=== PATIENT | male | born 1960 | race African-American/Black ===

== ENCOUNTER 2018-08-29 11:04 | Observation (INO) ==
[2018-08-29] MEDS ORDERED: Isovue-370 500 ML BOTTLE IVP ONE (11:58)
[2018-08-29] MEDS ORDERED: Furosemide 40 MG/4 ML VIAL IVP ONE (12:14)
--- NOTE | 2018-08-29 12:20 | Emergency Department Note ---
Disposition Clinical Impression: Ascites of liver Disposition: Admitted As Inpatient Condition: Fair Referrals: NONE,PCP [Primary Care Provider] - Forms: ED Satisfaction Letter, Work/School Release Time of Disposition: 14:32 Abdominal Pain HPI - General Chief Complaint: ED Abdominal Pain Stated Complaint: Abdominal Pain and Swelling Time Seen by Provider: 08/29/18 11:52 - History of Present Illness HPI Narrative: Patient is 57-year-old male presents to the emergency room complains of abdominal swelling. The patient apparently was here by week ago, the patient did have ascites, patient was discharged apparently with only Flagyl, he was apparently told to follow up with creative consultant for thrombocytopenia. The patient has not been able to follow up with anybody in the past 1 week. Patient complains of continuing abdominal swelling and pain. He also complains of lower tremor swelling. Patient states that again he has had this one time in the past , was treated with apparent diuretics and got better. Patient does computer some mild shortness of breath, denies any severe cough or congestion. He denies any fevers or chills. He does complain of this abdominal pain being mild in nature. Nothing else makes symptoms better or worse. He has had no or GI complaints otherwise except for the pain and swelling. Patient has been having no vomiting, no nausea. The patient denies any fevers or chills. He denies any rash. Pain Scale: 8 - Related Data Home Medications Medication Instructions Recorded Confirmed No Known Home Drugs 08/29/18 08/29/18 Allergies Allergy/AdvReac Type Severity Reaction Status Date / Time No Known Allergies Allergy Verified 08/17/18 15:18 Review of Systems: As mentioned per history of present illness and as follows. Constitutional: Negative for chills or fever HENT: Negative for sore throat. Eyes: Negative for visual disturbance Respiratory: Positive for shortness of breath. Cardiovascular: Negative for palpitations. Gastrointestinal: Positive for abdominal pain Genitourinary: Negative for dysuria Musculoskeletal: Negative for back pain. Skin: Negative for rash. Neurological: Negative for focal weakness Psychiatric/Behavioral: Negative for depression Abdominal Pain PMH - Past Medical History Medical history: Reports: no medical history Male Surgical History: Reports: no surgical history Psychiatric history: Reports: no psych history - Social History Smoking status: Current every day smoker Alcohol use: Reports: occasionally Drug use: Reports: marijuana Physical Exam PHYSICAL EXAM Constitutional: Well developed, Well nourished, No acute distress, Non-toxic appearance. HENT: Normocephalic, Atraumatic, Bilateral external ears normal, Oropharynx moist, No oral exudates, Nose normal. Neck- Normal range of motion, No tenderness, Supple. Eyes: PERRL, EOMI, Conjunctiva normal,. Cardiovascular: Regular rate and rhythm without clicks, rubs, gallops or murmurs. Respiratory: Normal breath sounds, No respiratory distress, No wheezing, rhonchi, or crackles. GI: Distended, mild tenderness appreciated, positive fluid wave, bowel sounds are appreciated. Musculoskeletal: Good range of motion in all major joints. No tenderness to palpation or major deformities noted. +5/5 strength noted to all extremities. Integument: Warm, Dry, No erythema, No rash. +2 pretibial edema, edema extends up to the thigh region bilaterally. Neurologic: Alert & oriented x 3, Normal sensory function, No focal deficits noted. CN II-XII grossly intact. Course Vital Signs Temperature 98.1 F 08/29/18 11:05 Pulse Rate 113 08/29/18 11:05 Respiratory Rate 18 08/29/18 11:05 Blood Pressure 140/89 08/29/18 11:05 O2 Sat by Pulse Oximetry 95 08/29/18 11:05 Temperature 98.1 F 08/29/18 12:52 Pulse Rate 87 08/29/18 13:09 Respiratory Rate 18 08/29/18 12:52 Blood Pressure 131/89 08/29/18 13:09 O2 Sat by Pulse Oximetry 95 08/29/18 12:52 Oxygen Delivery Oxygen Delivery Room Air Abdominal Pain - MDM Narrative Medical decision making narrative: EKG was obtained that showed sinus rhythm 79 beats a minute, the patient does not have initial upward deflection in V1 or V2, possible anteroseptal infarct noted that appears to be old. Otherwise no other ST elevation or depression. ID and QT intervals appear to be within normal limits. Interpreted by myself. Patient at this time is going to be admitted for new onset cirrhosis. The patient has continued swelling of the abdomen, the patient continues to have thrombus in it. He has well. The patient however does not have significant elevated liver enzymes. The patient is going to be admitted. Patient will also have interventional radiology perform paracentesis for significant ascites. The patient also has significant swelling to the lower extremities. The patient will be admitted, case was discussed in full detail with the hospitalist and the patient will be admitted to the floor in stable condition. Final impression 1. Cirrhosis 2. ascites 3. Anasarca 4. Thrombocytopenia - Lab Data Result diagrams: 08/29/18 11:57 08/29/18 11:57 Lab Results 08/29/18 08/29/18 08/29/18 Range/Units 11:57 11:57 12:10 WBC 7.8 (4.3-11.1) K/mcL RBC 4.67 (4.19-5.50) M/mcL Hgb 12.3 L (12.9-16.9) g/dL Hct 37.5 (37.5-50.1) % MCV 80.3 L (83.0-100.0) fL MCH 26.3 L (28.0-33.3) pg MCHC 32.8 (31.6-35.5) g/dL RDW 14.6 H (11.5-14.5) % Plt Count 80 L (140-400) K/mcL MPV TNP Immature Gran % 0.3 (0-4) % Seg Neutrophils % 62.2 % Lymphocytes % 24.7 % Monocytes % 9.3 % Eosinophils % 2.7 % Basophils % 0.8 % Neutrophils # 4.9 (1.6-8.9) K/mcL Lymphocytes # 1.9 (0.6-4.6) K/mcL Monocytes # 0.7 (0.0-1.3) K/mcL Eosinophils # 0.2 (0.0-0.6) K/mcL Basophils # 0.1 (0.0-0.2) K/mcL Sodium 135 L (136-145) mEq/L Potassium 4.2 (3.5-5.1) mEq/L Chloride 105 (98-107) mEq/L Carbon Dioxide 26 (23-29) mEq/L BUN 9 (6-20) mg/dL Creatinine 1.02 (0.70-1.30) mg/dL Est GFR ( Amer) > 60 (> 60) Est GFR (Non-Af Amer) > 60 (> 60) BUN/Creatinine Ratio 9 (6-26) Glucose 108 H (70-105) mg/dL Calculated Osmolality 279 L (280-300) Calcium 8.6 (8.6-10.3) mg/dL Total Bilirubin 1.1 H (0.3-1.0) mg/dL Direct Bilirubin 0.5 H (0.0-0.2) mg/dL Indirect Bilirubin 0.6 (0.0-1.2) mg/dL AST 57 H (13-39) Units/L ALT 28 (7-52) Units/L Alkaline Phosphatase 109 H (34-104) Units/L Troponin I < 0.03 (< 0.04) ng/mL B-Natriuretic Peptide 28 (Less than 100) pg/mL Serum Total Protein 6.8 (6.4-8.9) g/dL Albumin 3.1 L (3.5-5.7) g/dL Globulin 3.7 H (2.4-3.5) g/dL Albumin/Globulin Ratio 0.8 L (1.1-2.2) Amylase 76 (29-103) Units/L Lipase 8 L (11-82) Units/L
[2018-08-29 12:21] LABS: Basophils # 0.1 K/mcL (0.0-0.2); Basophils % 0.8 %; Eosinophils # 0.2 K/mcL (0.0-0.6); Eosinophils % 2.7 %; Hematocrit 37.5 % (37.5-50.1); Hemoglobin 12.3 g/dL (12.9-16.9); Immature Granulocytes % 0.3 % (0-4); Lymphocytes # 1.9 K/mcL (0.6-4.6); Lymphocytes % 24.7 %; Mean Corpuscular HGB Conc 32.8 g/dL (31.6-35.5); Mean Corpuscular Hemoglobin 26.3 pg (28.0-33.3); Mean Corpuscular Volume 80.3 fL (83.0-100.0); Monocytes # 0.7 K/mcL (0.0-1.3); Monocytes % 9.3 %; Neutrophils # 4.9 K/mcL (1.6-8.9); Red Blood Count 4.67 M/mcL (4.19-5.50); Red Cell Distribution Width 14.6 % (11.5-14.5); Segmented Neutrophils % 62.2 %; White Blood Count 7.8 K/mcL (4.3-11.1)
[2018-08-29 12:22] LABS: Platelet Count 80 K/mcL (140-400)
[2018-08-29 12:38] LABS: Alanine Aminotransferase 28 Units/L (7-52); Albumin 3.1 g/dL (3.5-5.7); Albumin/Globulin Ratio 0.8 (1.1-2.2); Alkaline Phosphatase 109 Units/L (34-104); Amylase 76 Units/L (29-103); Aspartate Amino Transferase 57 Units/L (13-39); BUN/Creatinine Ratio 9 (6-26); Bilirubin,Direct 0.5 mg/dL (0.0-0.2); Bilirubin,Indirect 0.6 mg/dL (0.0-1.2); Bilirubin,Total 1.1 mg/dL (0.3-1.0); Blood Urea Nitrogen 9 mg/dL (6-20); Calcium 8.6 mg/dL (8.6-10.3); Carbon Dioxide 26 mEq/L (23-29); Chloride 105 mEq/L (98-107); Globulin 3.7 g/dL (2.4-3.5); Glucose 108 mg/dL (70-105); Lipase 8 Units/L (11-82); Osmolality,Calculated 279 (280-300); Potassium 4.2 mEq/L (3.5-5.1); Sodium 135 mEq/L (136-145); Total Protein 6.8 g/dL (6.4-8.9); eGFR For African Americans > 60 (> 60); eGFR For Non-African Americans > 60 (> 60)
[2018-08-29 12:48] LABS: Troponin I < 0.03 ng/mL (< 0.04)
[2018-08-29] MEDS ORDERED: Ondansetron ODT 4 MG TAB.RAPDIS SL PRN (15:38)
[2018-08-29] MEDS ORDERED: Naloxone 0.4 MG/ML INJ IVP PRN (15:38)
[2018-08-29 16:18] LABS: Amylase,Peritoneal Fluid 18 Units/L (No Ref Range); Glucose,Peritoneal Fluid 108 mg/dL (No Ref Range); LDH,Peritoneal Fluid 51 Units/L (No Ref Range); Total Protein,Peritoneal Fluid < 3.0 g/dL
[2018-08-29 16:27] LABS: RBC,Peritoneal Fluid < 0.002 M/mcL
[2018-08-29 16:30] LABS: Appearance of Peritoneal Fl HAZY (Clear)
--- NOTE | 2018-08-29 16:38 | Internal Med History&Physical ---
Date of Encounter: 08/29/18 Time of Encounter: 16:36 Internal Medicine - H&P: HPI Chief complaint: abdominal distention Admitted From: Home Plans for Post Hospital Care: Home History of present illness: Mr. Burgos is a 57 year old male Past Med Surg Social Fam HX - Past Medical History Medical history: no medical history Psychiatric history: no psych history - Social History Smoking Status: Current every day smoker Smokeless Tobacco Status: No Alcohol use: occasionally Drug use: marijuana - Family History Mother Hx Family Cancer: Yes Internal Medicine - H&P: Meds No Known Home Drugs 08/29/18 [History] Allergy/AdvReac Type Severity Reaction Status Date / Time No Known Allergies Allergy Verified 08/17/18 15:18 All Systems PM: A 10-system review of systems was performed and is negative for pertinent findings except as documented above in the HPI. Review of systems: General: Fevers / Weight loss / Night sweats Eyes: Blurry Vision / Change in Vision HENT: Ear Pain / Ear Drainage / Rhinorrhea / Throat Pain / Lymphadenopathy Cardiovascular: Chest Pain / Palpatations / Orthopnea / CRUZ / Weight gain Lungs: Dyspnea / Wheezing / Cough / Sputum production / Pleurisy Abdomen: Abdomen pain / Abdominal distention Extremities: LE edema / Ext pain / Ext erythema Skin: Rashes / Abrasions / Contusions Psych: Hallucinations / Anxiety / Depression Neuro: Weakness / Numbness / Tingling / Facial Droop / Dysphagia - Constitutional Vitals: Temp Pulse Resp BP Pulse Ox 98.1 F 87 16 120/76 95 08/29/18 12:52 08/29/18 13:09 08/29/18 15:50 08/29/18 15:50 08/29/18 12:52 Exam: General: Ill-appearing and in no acute distress HEENT: No erythema of posterior pharynx. No exudates. Lymphatics: No mandibular or cervical lymphadenopathy Cardiovascular: RRR. No murmurs. No chest wall tenderness. Lungs: Clear to auscelltation bilaterally. Regular chest rise. Abdomen: Non-tender. L lipoma and midline hernia. No rebound or gaurding. Nl bowel sounds. Extremities: 2+ pitting edema. 2+ pulses radial and pedal pulses Skin: No rahses, abrasions, or contusions. Nl cap refill. Psych: Nl attention. A&Ox3 Neuro: director of quality II-XII intact. 06/29 strength. Sensation to light touch and pinprick intact. Internal Med - H&P Results - Labs CBC & Chem 7: 08/29/18 11:57 08/29/18 11:57 Labs: Short CBC 08/29/18 Range/Units 11:57 WBC 7.8 (4.3-11.1) K/mcL Hgb 12.3 L (12.9-16.9) g/dL Hct 37.5 (37.5-50.1) % Plt Count 80 L (140-400) K/mcL Neutrophils # 4.9 (1.6-8.9) K/mcL BMP 08/29/18 11:57 Sodium 135 L Potassium 4.2 Chloride 105 Carbon Dioxide 26 BUN 9 Creatinine 1.02 Glucose 108 H Calcium 8.6 Cardiac Enzymes 08/29/18 Range/Units 11:57 Troponin I < 0.03 (< 0.04) ng/mL Liver Function 08/29/18 Range/Units 11:57 Total Bilirubin 1.1 H (0.3-1.0) mg/dL Direct Bilirubin 0.5 H (0.0-0.2) mg/dL AST 57 H (13-39) Units/L ALT 28 (7-52) Units/L Alkaline Phosphatase 109 H (34-104) Units/L Albumin 3.1 L (3.5-5.7) g/dL - Impressions ITS Impressions Abdomen/Pelvis CT 08/29/18 11:58 IMPRESSION: 1. Large volume abdominal and pelvic ascites, with advanced liver cirrhosis. 2. Small left hepatic hydrothorax. D/ / 08/29/2018 13:59:30 Sander Quiroz MD / Joanie Branch Interpreting Provider: Sander Quiroz MD - Assessment and Plan (1) End stage liver disease Current Visit: Yes Status: Acute Assessment and plan: Patient with history of mild alcohol abuse presents with new onset ascites and lower extremity edema in the setting of stable vitals, anasarca on physical exam but no jaundice or asterixis, thromocytopenia but otherwise stable CBC, low- level elevations of liver enzymes, and CT imaging with evidence of cirrhosis with large volume ascites. -No evidence of acute liver failure. Appears that this is all chronic. -Etiology not entirely clear History of alcohol abuse but says this is mild with only 2 beers per day. AST greater than ALT suggests this etiology. Denies risk factors for viral hepatitis but serologies will be obtained Normal BMI so nonalcoholic fatty liver disease unlikely No history of autoimmune disease. Will hold off on autoimmune workup to start We will also screen for HCC with liver ultrasound PLAN: - Right upper quadrant ultrasound to evaluate for HCC and portal vein thrombosis - Viral hepatitis panel - INR and CMP daily - IV Lasix and spironolactone - Strict I's and O's and daily weights (2) Thrombocytopenia Current Visit: Yes Status: Acute Assessment and plan: Mild and likely secondary to liver cirrhosis - Daily CBC (3) Ascites of liver Current Visit: Yes Status: Acute Assessment and plan: Diuresis per above and patient is status post large volume paracentesis (4) Alcohol abuse Current Visit: Yes Status: Acute Assessment and plan: No history of withdrawal so we will hold off on CIWA - Time Spent With Patient Total time spent is greater than 50% in coordination of care (as documented) at patient's floor/unit and/or counseling patient: Greater than 35 minutes
[2018-08-29 17:37] LABS: Basophils,Peritoneal Fluid 0 %; Eosinophils,Peritoneal Fluid 0 %
[2018-08-29] MEDS: Spironolactone 25 MG TABLET PO SCH (19:00)
[2018-08-29 19:38] LABS: Hepatitis B Surface Antigen Nonreactive (Nonreactive)
[2018-08-29 20:08] LABS: Hepatitis B Core IgM Nonreactive (Nonreactive)
[2018-08-29 20:09] LABS: Hepatitis A Antibody IgM Nonreactive (Nonreactive)
[2018-08-29] MEDS: Furosemide 40 MG in 0.9 % Sodium Chloride 50 ML IV SCH (20:54)
[2018-08-29 23:00] LABS: Bilirubin,Urine Negative (Negative); Blood,Urine Negative (Negative); Clarity,Urine Clear (Clear); Color,Urine Yellow (Yellow); Glucose,Urine (UA) Normal (Normal); Ketones,Urine Negative (Negative); Leukocyte Esterase,Urine Negative (Negative); Nitrite,Urine Negative (Negative); PH,Urine 7.5 pH Units (5.0-8.0); Protein,Urine Negative (Neg-Trace)
[2018-08-29 23:08] LABS: Bacteria,Urine None Seen per hpf (None-Few); Hyaline Casts,Urine None Seen per lpf (None-Few); RBC,Urine 0-3 per hpf (0-3); Squamous Epithelial Cell,Urine Few per lpf (None-Few); WBC,Urine 0-3 per hpf (0-3)
[2018-08-30 00:20] LABS: Hepatitis C Virus Antibody Reactive (Nonreactive)
[2018-08-30 01:45] LABS: Immature Granulocytes % 0.2 % (0-4); Mean Corpuscular HGB Conc 33.1 g/dL (31.6-35.5); Segmented Neutrophils % 55.5 %
[2018-08-30 01:48] LABS: Basophils % 0.6 %; Eosinophils # 0.2 K/mcL (0.0-0.6); Eosinophils % 3.8 %; Hematocrit 32.9 % (37.5-50.1); Hemoglobin 10.9 g/dL (12.9-16.9); Immature Platelets 10.7 % (1.1-6.1); Lymphocytes # 1.9 K/mcL (0.6-4.6); Lymphocytes % 29.9 %; Mean Corpuscular Hemoglobin 26.2 pg (28.0-33.3); Mean Corpuscular Volume 79.1 fL (83.0-100.0); Monocytes # 0.6 K/mcL (0.0-1.3); Neutrophils # 3.6 K/mcL (1.6-8.9); Red Blood Count 4.16 M/mcL (4.19-5.50); Red Cell Distribution Width 14.2 % (11.5-14.5); White Blood Count 6.4 K/mcL (4.3-11.1)
[2018-08-30 01:54] LABS: INR 1.3; Platelet Count 62 K/mcL (140-400); Prothrombin Time 15.2 Seconds (9.4-12.1)
[2018-08-30 02:27] LABS: Alanine Aminotransferase 22 Units/L (7-52); Albumin 2.5 g/dL (3.5-5.7); Albumin/Globulin Ratio 0.9 (1.1-2.2); Alkaline Phosphatase 94 Units/L (34-104); Aspartate Amino Transferase 43 Units/L (13-39); BUN/Creatinine Ratio 9 (6-26); Bilirubin,Total 0.7 mg/dL (0.3-1.0); Blood Urea Nitrogen 9 mg/dL (6-20); Carbon Dioxide 26 mEq/L (23-29); Chloride 105 mEq/L (98-107); Globulin 2.9 g/dL (2.4-3.5); Glucose 101 mg/dL (70-105); Osmolality,Calculated 283 (280-300); Potassium 3.8 mEq/L (3.5-5.1); Sodium 137 mEq/L (136-145); Total Protein 5.4 g/dL (6.4-8.9); eGFR For African Americans > 60 (> 60); eGFR For Non-African Americans > 60 (> 60)
[2018-08-30] MEDS: *HR* Enoxaparin 40 MG/0.4 ML SYRINGE SQ SCH (05:22)
[2018-08-30] MEDS: Spironolactone 25 MG TABLET PO SCH (10:14)
[2018-08-30] MEDS: Furosemide 40 MG in 0.9 % Sodium Chloride 50 ML IV SCH ×2 (10:14→21:07)
--- NOTE | 2018-08-30 13:02 | Internal Med Progress Note ---
Hospitalist Progress Note - Encounter Date of Encounter: 08/30/18 Time of Encounter: 12:58 - Subjective Interval History: I's and O's do not appear to be accurate the patient subjectively feeling improved with regards to abdominal distention and lower extremity edema. Hepatitis C serologies returned positive. Discussed with patient. - Exam Vitals: Temp Pulse Resp BP Pulse Ox 97.8 F 79 15 116/74 97 08/30/18 11:44 08/30/18 11:44 08/30/18 11:44 08/30/18 11:44 08/30/18 11:44 Exam: General: Ill-appearing and in no acute distress HEENT: No erythema of posterior pharynx. No exudates. Lymphatics: No mandibular or cervical lymphadenopathy Cardiovascular: RRR. No murmurs. No chest wall tenderness. Lungs: Clear to auscelltation bilaterally. Regular chest rise. Abdomen: Non-tender. L lipoma and midline hernia. No rebound or gaurding. Nl bowel sounds. Extremities: 2+ pitting edema. 2+ pulses radial and pedal pulses Skin: No rahses, abrasions, or contusions. Nl cap refill. Psych: Nl attention. A&Ox3 Neuro: director pharmacology II-XII intact. 5/5 strength. Sensation to light touch and pinprick intact. - Assessment and Plan (1) End stage liver disease Current Visit: Yes Status: Acute Assessment and Plan: Patient with history of mild alcohol abuse presents with new onset ascites and lower extremity edema in the setting of stable vitals, anasarca on physical exam but no jaundice or asterixis, thromocytopenia but otherwise stable CBC, low-level elevations of liver enzymes, and CT imaging with evidence of cirrhosis with large volume ascites. -No evidence of acute liver failure. Appears that this is all chronic. -Hepatitis C serologies positive. Discussed with patient. Also strongly recommended alcohol cessation -Abdominal ultrasound without evidence of HCC -We will likely need 1 more day of IV diuresis. Can consider discharge tomorrow. PLAN: - IV Lasix and spironolactone - Strict I's and O's and daily weights (2) Hep C w/o coma, chronic Current Visit: Yes Status: Acute Assessment and Plan: Discussed with patient. Recommend outpatient follow-up with GI to initiate treatment for cure. (3) Thrombocytopenia Current Visit: Yes Status: Acute Assessment and Plan: Mild and likely secondary to liver cirrhosis - Daily CBC (4) Ascites of liver Current Visit: Yes Status: Acute Assessment and Plan: Diuresis per above and patient is status post large volume paracentesis (5) Alcohol abuse Current Visit: Yes Status: Acute Assessment and Plan: No history of withdrawal so we will hold off on CIWA - Time Spent with Patient Total time spent is greater than 50% in coordination of care (as documented) at patient's floor/unit and/or counseling patient: Internal Medicine: Result - Labs CBC & Chem 7: 08/30/18 00:40 08/30/18 00:40 Labs: Short CBC 08/30/18 Range/Units 00:40 WBC 6.4 (4.3-11.1) K/mcL Hgb 10.9 L (12.9-16.9) g/dL Hct 32.9 L (37.5-50.1) % Plt Count 62 L (140-400) K/mcL Neutrophils # 3.6 (1.6-8.9) K/mcL BMP 08/29/18 08/30/18 11:57 00:40 Sodium 135 L 137 Potassium 4.2 3.8 Chloride 105 105 Carbon Dioxide 26 26 BUN 9 9 Creatinine 1.02 0.99 Glucose 108 H 101 Calcium 8.6 8.0 L Cardiac Enzymes 08/29/18 Range/Units 11:57 Troponin I < 0.03 (< 0.04) ng/mL Liver Function 08/29/18 08/30/18 Range/Units 11:57 00:40 Total Bilirubin 1.1 H 0.7 (0.3-1.0) mg/dL Direct Bilirubin 0.5 H (0.0-0.2) mg/dL AST 57 H 43 H (13-39) Units/L ALT 28 22 (7-52) Units/L Alkaline Phosphatase 109 H 94 (34-104) Units/L Albumin 3.1 L 2.5 L (3.5-5.7) g/dL Urine 08/29/18 Range/Units 22:45 Urine Color Yellow (Yellow) Urine Clarity Clear (Clear) Urine pH 7.5 (5.0-8.0) pH Units Ur Specific [place] 1.020 (1.010-1.025) Urine Protein Negative (Neg-Trace) mg/dL Urine Glucose (UA) Normal (Normal) mg/dL - ABG Interpretation ABG results: PT/INR, D-dimer PT 15.2 Seconds (9.4-12.1) H 08/30/18 00:40 - Impressions Impressions Abdomen/Pelvis CT 08/29/18 11:58 IMPRESSION: 1. Large volume abdominal and pelvic ascites, with advanced liver cirrhosis. 2. Small left hepatic hydrothorax. D/ / 08/29/2018 13:59:30 Sander Quiroz MD / Joanie Branch Interpreting Provider: Sander Quiroz MD Abdomen Ultrasound 08/30/18 09:00 IMPRESSION: Cirrhosis without discrete liver lesion. Large volume ascites. D/ / Darian Anguiano MD / Darian Anguiano MD Interpreting Provider: Darian Anguiano MD Consult Discharge Plan - Plan Referrals: Avel Medeiros MD [Non-Partnered Physician] -
[2018-08-31 05:49] LABS: Hematocrit 33.9 % (37.5-50.1); Hemoglobin 11.4 g/dL (12.9-16.9); Mean Corpuscular HGB Conc 33.6 g/dL (31.6-35.5); Mean Corpuscular Hemoglobin 25.9 pg (28.0-33.3); Mean Corpuscular Volume 76.9 fL (83.0-100.0); Red Blood Count 4.41 M/mcL (4.19-5.50); Red Cell Distribution Width 13.8 % (11.5-14.5); White Blood Count 6.6 K/mcL (4.3-11.1)
[2018-08-31 05:50] LABS: Platelet Count 58 K/mcL (140-400)
[2018-08-31 06:02] LABS: Alanine Aminotransferase 22 Units/L (7-52); Albumin 2.4 g/dL (3.5-5.7); Albumin/Globulin Ratio 0.7 (1.1-2.2); Alkaline Phosphatase 103 Units/L (34-104); Aspartate Amino Transferase 39 Units/L (13-39); BUN/Creatinine Ratio 12 (6-26); Bilirubin,Total 0.7 mg/dL (0.3-1.0); Blood Urea Nitrogen 12 mg/dL (6-20); Calcium 7.8 mg/dL (8.6-10.3); Carbon Dioxide 28 mEq/L (23-29); Chloride 103 mEq/L (98-107); Globulin 3.3 g/dL (2.4-3.5); Glucose 84 mg/dL (70-105); INR 1.4; Osmolality,Calculated 281 (280-300); Potassium 3.5 mEq/L (3.5-5.1); Prothrombin Time 16.2 Seconds (9.4-12.1); Sodium 136 mEq/L (136-145); Total Protein 5.7 g/dL (6.4-8.9); eGFR For African Americans > 60 (> 60); eGFR For Non-African Americans > 60 (> 60)
[2018-08-31] MEDS: *HR* Enoxaparin 40 MG/0.4 ML SYRINGE SQ SCH (06:21)
[2018-08-31] MEDS: Spironolactone 25 MG TABLET PO SCH (08:46)
--- NOTE | 2018-08-31 09:23 | Electrocardiograph Report ---
[facility] Test Date: 2018-08-29 Pat Name: Garry Burgos Department: [id number] Room: 3B39 Gender: M Land Use Planner: : [id number] Requested By: [id number] Order Number: [id number] Reading MD: Oneil Chapman Measurements Intervals [place] Rate: 79 P: 65 MS: 140 QRS: 86 QRSD: 77 T: 13 QT: 404 QTc: 464 Interpretive Statements Sinus rhythm Probable anteroseptal infarct, old Electronically Signed On 08-31-2018 9:22:20 EDT by Oneil Chapman
[2018-08-31] MEDS ORDERED: Potassium Chloride Elixir 20 MEQ/15 ML UDC PO ONE (09:53)
[2018-08-31] MEDS: Furosemide 40 MG in 0.9 % Sodium Chloride 50 ML IV SCH (11:05)
[2018-08-31 14:32] LABS: RBC,Peritoneal Fluid < 0.002 M/mcL
[2018-08-31 15:10] LABS: Basophils,Peritoneal Fluid 0 %; Eosinophils,Peritoneal Fluid 0 %
[2018-08-31 15:11] LABS: Appearance of Peritoneal Fl CLEAR (Clear)
--- NOTE | 2018-08-31 15:14 | Internal Med Progress Note ---
Hospitalist Progress Note - Encounter Date of Encounter: 08/31/18 Time of Encounter: 15:12 - Subjective Interval History: I's and O's difficult to track but lower extremity edema seems less. Still with significant abdominal distention. Repeat paracentesis today with 3 L off. - Exam Vitals: Temp Pulse Resp BP Pulse Ox 98.0 F 70 16 114/71 97 08/31/18 11:13 08/31/18 11:13 08/31/18 11:13 08/31/18 11:13 08/31/18 11:13 Exam: General: Ill-appearing and in no acute distress HEENT: No erythema of posterior pharynx. No exudates. Lymphatics: No mandibular or cervical lymphadenopathy Cardiovascular: RRR. No murmurs. No chest wall tenderness. Lungs: Clear to auscelltation bilaterally. Regular chest rise. Abdomen: Non-tender but distended. L lipoma and midline hernia. No rebound or gaurding. Nl bowel sounds. Extremities: 2+ pitting edema. 2+ pulses radial and pedal pulses Skin: No rahses, abrasions, or contusions. Nl cap refill. Psych: Nl attention. A&Ox3 Neuro: curator herbarium II-XII intact. 5/5 strength. Sensation to light touch and pinprick intact. - Assessment and Plan (1) End stage liver disease Current Visit: Yes Status: Acute Assessment and Plan: Patient with history of mild alcohol abuse presents with new onset ascites and lower extremity edema in the setting of stable vitals, anasarca on physical exam but no jaundice or asterixis, thromocytopenia but otherwise stable CBC, low- level elevations of liver enzymes, and CT imaging with evidence of cirrhosis with large volume ascites. -No evidence of acute liver failure. Appears that this is all chronic. -Hepatitis C serologies positive. Discussed with patient. Also strongly recommended alcohol cessation -Abdominal ultrasound without evidence of HCC -Status post repeat therapeutic paracentesis today. No evidence of SBP -Patient seems to be reaccumulating fluid which is concerning. We will increase diuretic dosing PLAN: - IV Lasix 60mg x1 - Spironolactone 25mg qd --> 50mg qd - Strict I's and O's and daily weights (2) Hep C w/o coma, chronic Current Visit: Yes Status: Acute Assessment and Plan: Discussed with patient. Recommend outpatient follow-up with GI to initiate treatment for cure. (3) Thrombocytopenia Current Visit: Yes Status: Acute Assessment and Plan: Mild and likely secondary to liver cirrhosis - Daily CBC (4) Ascites of liver Current Visit: Yes Status: Acute (5) Alcohol abuse Current Visit: Yes Status: Acute Assessment and Plan: No history of withdrawal so we will hold off on CIWA DVT Prophylaxis: LMWH - Time Spent with Patient Total time spent is greater than 50% in coordination of care (as documented) at patient's floor/unit and/or counseling patient: Greater than 35 minutes Plan of Care Discussed with: patient Internal Medicine: Result - Labs CBC & Chem 7: 08/31/18 04:38 08/31/18 04:38 Labs: Short CBC 08/31/18 Range/Units 04:38 WBC 6.6 (4.3-11.1) K/mcL Hgb 11.4 L (12.9-16.9) g/dL Hct 33.9 L (37.5-50.1) % Plt Count 58 L (140-400) K/mcL BMP 08/31/18 04:38 Sodium 136 Potassium 3.5 Chloride 103 Carbon Dioxide 28 BUN 12 Creatinine 1.03 Glucose 84 Calcium 7.8 L Liver Function 08/31/18 Range/Units 04:38 Total Bilirubin 0.7 (0.3-1.0) mg/dL AST 39 (13-39) Units/L ALT 22 (7-52) Units/L Alkaline Phosphatase 103 (34-104) Units/L Albumin 2.4 L (3.5-5.7) g/dL - ABG Interpretation ABG results: PT/INR, D-dimer PT 16.2 Seconds (9.4-12.1) H 08/31/18 04:38 Consult Discharge Plan - Plan Referrals: Avel Medeiros MD [Non-Partnered Physician] -
[2018-08-31] MEDS ORDERED: Spironolactone 25 MG TABLET PO ONE (15:18)
[2018-08-31] MEDS ORDERED: Furosemide 20 MG/2 ML VIAL IVP ONE (16:45)
--- NOTE | 2018-08-31 19:02 | Procedure Note ---
Date of procedure: 08/31/18 Pre-op diagnosis: Ascites Post-op diagnosis: same Procedure: PROCEDURE: Diagnostic and Therapeutic Paracentesis CONSENT: Obtained THERMOMETER PRODUCTION WORKER: Cesar Pastrana MD PROCEDURE PERFORMED: INDICATION: Ascites A time-out was performed prior to the procedure. Ascites fluid was visualized with ultrasound and site was marked. Chlorhexadine was used to prep the skin. The patient was then draped in steril fashion. Chlorhexadine was again used to prep the skin. 10ml of 1% Lidocaine was used for local anesthesia. A safecentesis needle was used to access the abdominal cavity and a catheter was placed that drained straw-colored fluid. This was attached to vacume containers and a total of 3L of fluid was drained. The catheter was then removed. The procedure was well tolerated. ESTIMATED BLOOD LOSS: <5ml COMPLICATIONS: None Was there an assistant store director present: No Estimated blood loss (cc): 5 Specimen: sent to lab Pathology: other Condition: stable Disposition: floor
[2018-09-01 05:05] LABS: Red Cell Distribution Width 13.7 % (11.5-14.5)
[2018-09-01 05:08] LABS: Hematocrit 35.1 % (37.5-50.1); Mean Corpuscular HGB Conc 34.2 g/dL (31.6-35.5); Mean Corpuscular Hemoglobin 26.5 pg (28.0-33.3); Mean Corpuscular Volume 77.5 fL (83.0-100.0); Platelet Count 65 K/mcL (140-400); Red Blood Count 4.53 M/mcL (4.19-5.50); White Blood Count 6.4 K/mcL (4.3-11.1)
[2018-09-01 05:25] LABS: BUN/Creatinine Ratio 14 (6-26); Blood Urea Nitrogen 14 mg/dL (6-20); Calcium 7.9 mg/dL (8.6-10.3); Carbon Dioxide 28 mEq/L (23-29); Chloride 103 mEq/L (98-107); Glucose 92 mg/dL (70-105); Osmolality,Calculated 278 (280-300); Potassium 3.9 mEq/L (3.5-5.1); Sodium 134 mEq/L (136-145); eGFR For African Americans > 60 (> 60); eGFR For Non-African Americans > 60 (> 60)
[2018-09-01] MEDS: *HR* Enoxaparin 40 MG/0.4 ML SYRINGE SQ SCH (05:53)
[2018-09-01] MEDS ORDERED: Furosemide 60 MG in 0.9 % Sodium Chloride 50 ML IV ONE (08:08)
[2018-09-01] MEDS: Spironolactone 25 MG TABLET PO SCH ×2 (09:34→09:51)
[2018-09-01 11:08] VITALS: BP 112/76
--- NOTE | 2018-09-01 12:23 | Discharge Summary ---
Orders not resulted at time of discharge: Pending orders 08/29/18 14:23 IR paracentesis ultrasound [IR] Routine 08/29/18 14:58 Cytology Other [PTH] Routine 08/31/18 10:00 Culture,Body Fluid [RM] Stat Date of Encounter: 09/01/18 Time of Encounter: 12:17 - Discharge Diagnosis (1) End stage liver disease Priority: Primary Status: Acute (2) Hep C w/o coma, chronic Priority: Secondary Status: Acute (3) Thrombocytopenia Priority: Secondary Status: Acute (4) Ascites of liver Priority: Secondary Status: Acute (5) Alcohol abuse Priority: Secondary Status: Acute Hospital course: Mr. Burgos is a 57 year old male with history of mild alcohol abuse presented with new onset ascites and lower extremity edema in the setting of serologies positive for hepatitis C. Diagnosed with new onset liver failure secondary to hepatitis C and possibly alcohol abuse as well. Diuresed during hospital stay and underwent to therapeutic paracenteses for volume removal. Mild cytopenias but no evidence of GI bleeding or hepatitis during hospital stay. We will follow-up with a new PCP. Recommend referral to GI for EGD to monitor for varices and treatment of hepatitis C. Told patient to weigh himself every day, avoid salty foods, and cessation of alcohol use. Will need BMP at PCP f/u appointment to monitor diuretic dosing. - Time Spent with Patient Total time spent providing and/or coordinating discharge services: 65 minutes Time spent: Greater than 30 minutes - Discharge Medications Prescriptions: New Spironolactone [Aldactone] 50 mg PO DAILY #30 tablet Furosemide [Lasix] 20 mg PO DAILY #30 tablet Home Medications: Furosemide [Lasix] 20 mg PO DAILY #30 tablet 09/01/18 [Rx] Spironolactone [Aldactone] 50 mg PO DAILY #30 tablet 09/01/18 [Rx] Allergies/Adverse Reactions: Allergy/AdvReac Type Severity Reaction Status Date / Time No Known Allergies Allergy Verified 08/17/18 15:18 Date of admission: 08/29/18 14:35 Primary care physician: PCP NONE Consults: 08/29/18 14:29 Consult to Interventional Radiology [CONS] Stat Consulting Provider: Radiology Interventional Cols Reason for Consult: Ascites Call Completed: No - Constitutional Vitals: Temp Pulse Resp BP Pulse Ox 97.9 F 87 18 112/76 95 09/01/18 11:08 09/01/18 11:08 09/01/18 11:08 09/01/18 11:08 09/01/18 11:08 Exam: General: Ill-appearing and in no acute distress HEENT: No erythema of posterior pharynx. No exudates. Lymphatics: No mandibular or cervical lymphadenopathy Cardiovascular: RRR. No murmurs. No chest wall tenderness. Lungs: Clear to auscelltation bilaterally. Regular chest rise. Abdomen: Non-tender but distended. L lipoma and midline hernia. No rebound or gaurding. Nl bowel sounds. Extremities: Trace pitting edema. 2+ pulses radial and pedal pulses Skin: No rahses, abrasions, or contusions. Nl cap refill. Psych: Nl attention. 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 5/5 strength. Sensation to light touch and pinprick intact. - Patient Status Disposition: Home, Self-Care Condition: Good - Discharge Instructions Follow Up With: Avel Medeiros MD [Non-Partnered Physician] - - Diet and Activity Activity: increase activity as tolerated Diet: low salt diet
[2018-09-01] MEDS ORDERED: Furosemide 20 MG/2 ML VIAL IVP ONE (12:29)
[2018-09-02] MEDS ORDERED: Furosemide 20 MG TABLET PO SCH (09:00)
== END 2018-09-01 12:49 | disposition home or self-care (01) ==
LOC: 3BNU 11:04 → EMEROOARM 11:04 → SUATTDRO 14:35 → 3BNU 16:12
PROVIDERS: ADMIT Internal Medicine; ATTEND Internal Medicine